=== PATIENT | female | born 1970 | race Caucasian/White ===

== ENCOUNTER 2020-06-04 11:12 | Inpatient (IN) | payer OTHER ==
[2020-06-04 11:39] VITALS: BMI 19.3
[2020-06-04] MEDS ORDERED: ACETAMINOPHEN 325 MG TABLET (FP) PO PRN ×2 (12:20)
[2020-06-04] MEDS ORDERED: MAGNESIUM CITRATE 300 ML BOTTLE PO PRN (12:20)
[2020-06-04] MEDS ORDERED: BISMUTH SUBSALICYLATE 524 MG/30 ML UD PO PRN (12:20)
[2020-06-04] MEDS ORDERED: MAGNESIUM HYDROX 2400MG/30ML ORAL SUSPENSION 30 ML CUP PO PRN (12:20)
[2020-06-04] MEDS ORDERED: MENTHOL/PHENOL 1 EACH UD MM PRN (12:20)
[2020-06-04] MEDS ORDERED: hydrOXYzine PAMOATE 25 MG CAPSULE (FP) PO PRN (12:20)
[2020-06-04] MEDS ORDERED: MAG HYDROX/AL HYDROX/SIMETH 30 ML UNIT-DOSE CUP PO PRN (12:20)
[2020-06-04] MEDS ORDERED: ONDANSETRON *ODT* 4 MG TABLET SL PRN (12:20)
[2020-06-04] MEDS ORDERED: METHADONE HCL 10 MG TABLET (FOR DETOX USE ONLY) PO ONE ×2 (12:22→14:35)
[2020-06-04] MEDS ORDERED: cloNIDine HCL 0.1 MG TABLET PO PRN (12:22)
[2020-06-04] MEDS ORDERED: diazePAM 5 MG TABLET PO ONE (12:23)
[2020-06-04] MEDS ORDERED: diazePAM 5 MG TABLET PO PRN (12:23)
[2020-06-04] MEDS: NICOTINE POLACRILEX 4 MG GUM BUC PRN ×3 (13:56→22:51)
[2020-06-04] MEDS ORDERED: TRIMETHOBENZAMIDE HCL 200MG/2ML INJ IM PRN (14:34)
[2020-06-04] MEDS: DICYCLOMINE HCL 10 MG CAPSULE PO PRN (14:51)
[2020-06-04] MEDS ORDERED: diazePAM 5 MG TABLET PO SCH (17:00)
[2020-06-04] MEDS: IBUPROFEN 400 MG TABLET (FP) PO PRN (18:10)
[2020-06-04] MEDS: METHOCARBAMOL 500 MG TABLET PO PRN (21:08)
[2020-06-04] MEDS ORDERED: chlordiazePOXIDE HCL 25 MG CAPSULE PO PRN (22:03)
[2020-06-04] MEDS: THIAMINE HCL 100 MG TABLET (FP) PO SCH (22:40)
[2020-06-04] MEDS: MELATONIN 5 MG TABLETS PO PRN (22:40)
[2020-06-04] MEDS: chlordiazePOXIDE HCL 25 MG CAPSULE PO SCH (22:41)
[2020-06-05] MEDS: chlordiazePOXIDE HCL 25 MG CAPSULE PO SCH ×4 (07:22→22:19)
[2020-06-05] MEDS ORDERED: METHADONE HCL 5 MG TABLET (FOR DETOX USE ONLY) ONE (09:45)
[2020-06-05] MEDS ORDERED: METHADONE HCL 10 MG TABLET (FOR DETOX USE ONLY) ONE (09:46)
[2020-06-05] MEDS ORDERED: METHADONE HCL 10 MG TABLET (FOR DETOX USE ONLY) PO ONE (10:00)
[2020-06-05] MEDS ORDERED: METHADONE (DETOX) 20 MG, METHADONE (DETOX) 5 MG PO ONE (10:00)
[2020-06-05 10:19] LABS: HEMATOCRIT 40.9 % (32.4-45.2); HEMOGLOBIN 13.1 GM/dL (10.7-15.3); MCH 29.5 pg (25.7-33.7); MEAN CELL VOLUME 92.2 fl (80-96); MEAN PLT VOLUME 9.6 fl (7.5-11.1); PLATELET COUNT 185 K/MM3 (134-434); RBC 4.44 M/mm3 (3.60-5.2); RDW 13.6 % (11.6-15.6); WHITE BLOOD COUNT 6.3 K/mm3 (4.0-10.0)
[2020-06-05 10:22] LABS: BLOOD UREA NITROGEN 14.7 mg/dL (7-18); CALCIUM 8.4 mg/dL (8.5-10.1)
[2020-06-05 10:25] LABS: CREATININE 0.7 mg/dL (0.55-1.3)
[2020-06-05 10:27] LABS: BILIRUBIN,TOTAL 0.5 mg/dL (0.2-1); TOT PROT 5.7 g/dl (6.4-8.2)
[2020-06-05] MEDS: PRENATAL VITAMINS W/ FOLIC ACID TABLET (FP) PO SCH (10:47)
[2020-06-05] MEDS: IBUPROFEN 400 MG TABLET (FP) PO PRN (10:49)
[2020-06-05] MEDS ORDERED: PNEUMOCOCCAL 23 VACCINE 0.5 ML VIAL IM ONE (12:00)
[2020-06-05] MEDS: NICOTINE 21 MG/24 HOURS TOPICAL PATCH TD SCH (13:40)
[2020-06-05] MEDS: METHOCARBAMOL 500 MG TABLET PO PRN (14:20)
[2020-06-05] MEDS: THIAMINE HCL 100 MG TABLET (FP) PO SCH (22:19)
[2020-06-05] MEDS: MELATONIN 5 MG TABLETS PO PRN (22:19)
[2020-06-06] MEDS ORDERED: diazePAM 5 MG TABLET PO SCH (06:00)
[2020-06-06] MEDS: chlordiazePOXIDE HCL 25 MG CAPSULE PO SCH ×3 (07:09→17:55)
[2020-06-06] MEDS ORDERED: METHADONE HCL 10 MG TABLET (FOR DETOX USE ONLY) PO ONE ×2 (10:00)
[2020-06-06] MEDS: NICOTINE 21 MG/24 HOURS TOPICAL PATCH TD SCH (10:24)
[2020-06-06] MEDS: PRENATAL VITAMINS W/ FOLIC ACID TABLET (FP) PO SCH (10:25)
[2020-06-06] MEDS: DICYCLOMINE HCL 10 MG CAPSULE PO PRN (10:26)
[2020-06-06] MEDS ORDERED: FLU VACCINE (FLULAVAL) PF 60 MCG/0.5 ML SYRINGE 2020-2021 IM ONE (12:00)
[2020-06-06] MEDS ORDERED: PNEUMOC 13-VAL CONJ-DIP CRM/PF 0.5 ML DISP.SYRIN IM ONE (12:00)
[2020-06-06 13:23] VITALS: BP 109/75; PULSE 82; TEMP 98.2
[2020-06-06] MEDS ORDERED: MASKS NR ONE (14:14)
[2020-06-06] MEDS: NICOTINE POLACRILEX 4 MG GUM BUC PRN (14:28)
[2020-06-06] MEDS ORDERED: PNEUMOCOCCAL 23 VACCINE 0.5 ML VIAL IM ONE (14:51)
[2020-06-07] MEDS ORDERED: chlordiazePOXIDE HCL 10 MG CAPSULE PO PRN
[2020-06-07] MEDS ORDERED: chlordiazePOXIDE HCL 10 MG CAPSULE PO SCH (05:00)
[2020-06-07] MEDS ORDERED: diazePAM 5 MG TABLET PO SCH (06:00)
[2020-06-07] MEDS ORDERED: METHADONE (DETOX) 10 MG, METHADONE (DETOX) 5 MG PO ONE (10:00)
[2020-06-07] MEDS ORDERED: METHADONE HCL 10 MG TABLET (FOR DETOX USE ONLY) PO ONE (10:00)
[2020-06-08] MEDS ORDERED: chlordiazePOXIDE HCL 10 MG CAPSULE PO SCH (05:00)
[2020-06-08] MEDS ORDERED: diazePAM 5 MG TABLET PO ONE (06:00)
[2020-06-08] MEDS ORDERED: METHADONE HCL 10 MG TABLET (FOR DETOX USE ONLY) PO ONE (10:00)
[2020-06-09] MEDS ORDERED: chlordiazePOXIDE HCL 10 MG CAPSULE PO ONE (05:00)
[2020-06-09] MEDS ORDERED: METHADONE HCL 5 MG TABLET (FOR DETOX USE ONLY) PO ONE (06:00)
== END 2020-06-06 19:10 | disposition left against medical advice (07) | DRG 894 ==
LOC: YASAS 11:12 → Y6N 11:55
PROVIDERS: ADMIT Allergy & Immunology; ATTEND Allergy & Immunology
PROC: HZ2ZZZZ Detoxification Services for Substance Abuse Treatment (ICD-10-PCS; principal; 2020-06-04)
DX: F11.23 Opioid dependence with withdrawal (principal); F14.20 Cocaine dependence, uncomplicated; F10.20 Alcohol dependence, uncomplicated; F17.210 Nicotine dependence, cigarettes, uncomplicated; F22 Delusional disorders
CPT/HCPCS: 36415; 71046-TC-FY; 80053; 85027; 86780; 93005; 93010; C9803; J0735; Q0162; U0003

== ENCOUNTER 2020-08-03 17:47 | Inpatient (IN) | payer OTHER ==
[2020-08-03 21:17] VITALS: BMI 20.7
[2020-08-03] MEDS ORDERED: ACETAMINOPHEN 325 MG TABLET (FP) PO PRN ×2 (21:18)
[2020-08-03] MEDS ORDERED: BISMUTH SUBSALICYLATE 524 MG/30 ML UD PO PRN (21:18)
[2020-08-03] MEDS ORDERED: MAGNESIUM CITRATE 300 ML BOTTLE PO PRN (21:18)
[2020-08-03] MEDS ORDERED: MAG HYDROX/AL HYDROX/SIMETH 30 ML UNIT-DOSE CUP PO PRN (21:18)
[2020-08-03] MEDS ORDERED: MAGNESIUM HYDROX 2400MG/30ML ORAL SUSPENSION 30 ML CUP PO PRN (21:18)
[2020-08-03] MEDS ORDERED: MENTHOL/PHENOL 1 EACH UD MM PRN (21:18)
[2020-08-03] MEDS ORDERED: METHADONE HCL 10 MG TABLET (FOR DETOX USE ONLY) PO ONE (22:15)
[2020-08-03] MEDS ORDERED: METHADONE HCL 10 MG TABLET (FOR DETOX USE ONLY) ONE (22:24)
[2020-08-03] MEDS ORDERED: chlordiazePOXIDE HCL 25 MG CAPSULE ONE (22:24)
[2020-08-03] MEDS: chlordiazePOXIDE HCL 25 MG CAPSULE PO SCH (22:27)
[2020-08-03] MEDS: MELATONIN 5 MG TABLETS PO SCH (23:49)
[2020-08-03] MEDS: THIAMINE HCL 100 MG TABLET (FP) PO SCH (23:50)
[2020-08-04] MEDS: NICOTINE POLACRILEX 2 MG GUM BUC PRN ×3 (02:18→19:39)
[2020-08-04] MEDS: METHOCARBAMOL 500 MG TABLET PO PRN (02:23)
[2020-08-04] MEDS: chlordiazePOXIDE HCL 25 MG CAPSULE PO SCH ×4 (06:00→23:49)
[2020-08-04] MEDS: ONDANSETRON *ODT* 4 MG TABLET SL PRN ×3 (08:44→20:24)
[2020-08-04] MEDS ORDERED: METHADONE HCL 5 MG TABLET (FOR DETOX USE ONLY) ONE (09:11)
[2020-08-04] MEDS ORDERED: METHADONE HCL 10 MG TABLET (FOR DETOX USE ONLY) ONE (09:12)
[2020-08-04] MEDS ORDERED: METHADONE (DETOX) 20 MG, METHADONE (DETOX) 5 MG PO ONE (10:00)
[2020-08-04] MEDS: PRENATAL VITAMINS W/ FOLIC ACID TABLET (FP) PO SCH (10:21)
[2020-08-04] MEDS: NICOTINE 14 MG/24 HOURS TOPICAL PATCH TD SCH (10:21)
[2020-08-04 11:36] LABS: HEMATOCRIT 40.5 % (32.4-45.2); HEMOGLOBIN 13.7 GM/dL (10.7-15.3); MCHC 33.8 g/dl (32.0-36.0); MEAN CELL VOLUME 91.6 fl (80-96); MEAN PLT VOLUME 9.9 fl (7.5-11.1); PLATELET COUNT 225 K/MM3 (134-434); RBC 4.42 M/mm3 (3.60-5.2); RDW 13.6 % (11.6-15.6); WHITE BLOOD COUNT 7.7 K/mm3 (4.0-10.0)
[2020-08-04 11:39] LABS: POTASSIUM 3.7 mmol/L (3.5-5.1)
[2020-08-04 11:48] LABS: ALBUMIN 3.5 g/dl (3.4-5.0); CALCIUM 8.7 mg/dL (8.5-10.1)
[2020-08-04 11:49] LABS: BLOOD UREA NITROGEN 23.4 mg/dL (7-18)
[2020-08-04 11:52] LABS: CREATININE 0.9 mg/dL (0.55-1.3)
[2020-08-04 11:53] LABS: TOT PROT 6.6 g/dl (6.4-8.2)
[2020-08-04] MEDS: chlordiazePOXIDE HCL 25 MG CAPSULE PO PRN ×2 (14:49→18:47)
[2020-08-04] MEDS: IBUPROFEN 400 MG TABLET (FP) PO PRN (19:35)
[2020-08-04] MEDS ORDERED: hydrOXYzine PAMOATE 25 MG CAPSULE (FP) PO PRN (20:10)
[2020-08-04] MEDS: MELATONIN 5 MG TABLETS PO SCH (23:49)
[2020-08-04] MEDS: THIAMINE HCL 100 MG TABLET (FP) PO SCH (23:50)
[2020-08-05] MEDS: chlordiazePOXIDE HCL 25 MG CAPSULE PO SCH ×4 (06:55→22:01)
[2020-08-05] MEDS ORDERED: METHADONE HCL 10 MG TABLET (FOR DETOX USE ONLY) PO ONE (10:00)
[2020-08-05] MEDS: NICOTINE 14 MG/24 HOURS TOPICAL PATCH TD SCH (10:13)
[2020-08-05] MEDS: PRENATAL VITAMINS W/ FOLIC ACID TABLET (FP) PO SCH (10:13)
[2020-08-05] MEDS: NICOTINE POLACRILEX 2 MG GUM BUC PRN ×2 (10:15→15:36)
[2020-08-05] MEDS: IBUPROFEN 400 MG TABLET (FP) PO PRN ×2 (11:44→20:07)
[2020-08-05] MEDS: chlordiazePOXIDE HCL 25 MG CAPSULE PO PRN (15:31)
[2020-08-05] MEDS: METHOCARBAMOL 500 MG TABLET PO PRN (16:47)
[2020-08-05] MEDS: ONDANSETRON *ODT* 4 MG TABLET SL PRN (16:47)
[2020-08-05] MEDS: hydrOXYzine PAMOATE 50 MG CAPSULE (FP) PO PRN ×2 (16:47→21:06)
[2020-08-05] MEDS: MELATONIN 5 MG TABLETS PO SCH (21:05)
[2020-08-05] MEDS: THIAMINE HCL 100 MG TABLET (FP) PO SCH (21:05)
[2020-08-06] MEDS ORDERED: chlordiazePOXIDE HCL 10 MG CAPSULE PO PRN
[2020-08-06] MEDS: chlordiazePOXIDE HCL 10 MG CAPSULE PO SCH ×2 (07:21→10:53)
[2020-08-06] MEDS: METHOCARBAMOL 500 MG TABLET PO PRN (08:18)
[2020-08-06] MEDS: IBUPROFEN 400 MG TABLET (FP) PO PRN (08:18)
[2020-08-06] MEDS ORDERED: METHADONE HCL 5 MG TABLET (FOR DETOX USE ONLY) ONE (08:59)
[2020-08-06] MEDS ORDERED: METHADONE HCL 10 MG TABLET (FOR DETOX USE ONLY) ONE (09:00)
[2020-08-06] MEDS ORDERED: METHADONE (DETOX) 10 MG, METHADONE (DETOX) 5 MG PO ONE (10:00)
[2020-08-06] MEDS: NICOTINE 14 MG/24 HOURS TOPICAL PATCH TD SCH (10:54)
[2020-08-06] MEDS: PRENATAL VITAMINS W/ FOLIC ACID TABLET (FP) PO SCH (10:54)
[2020-08-06] MEDS: ONDANSETRON *ODT* 4 MG TABLET SL PRN (12:11)
[2020-08-06 12:54] VITALS: BP 108/79; PULSE 95; TEMP 97.8
[2020-08-07] MEDS ORDERED: chlordiazePOXIDE HCL 10 MG CAPSULE PO SCH (05:00)
[2020-08-07] MEDS ORDERED: METHADONE HCL 10 MG TABLET (FOR DETOX USE ONLY) PO ONE (10:00)
[2020-08-08] MEDS ORDERED: chlordiazePOXIDE HCL 10 MG CAPSULE PO ONE (05:00)
[2020-08-08] MEDS ORDERED: METHADONE HCL 5 MG TABLET (FOR DETOX USE ONLY) PO ONE (06:00)
== END 2020-08-06 16:49 | disposition left against medical advice (07) | DRG 897 ==
LOC: YASAS 17:47 → Y6N 21:35
PROVIDERS: ADMIT Allergy & Immunology; ATTEND Allergy & Immunology
PROC: HZ2ZZZZ Detoxification Services for Substance Abuse Treatment (ICD-10-PCS; principal; 2020-08-03)
DX: F11.23 Opioid dependence with withdrawal (principal); F10.230 Alcohol dependence with withdrawal, uncomplicated; F14.20 Cocaine dependence, uncomplicated; F19.259 Other psychoactive substance dependence with psychoactive substance-induced psychotic disorder, unspecified; F17.210 Nicotine dependence, cigarettes, uncomplicated; F60.9 Personality disorder, unspecified; Z86.11 Personal history of tuberculosis; Z56.0 Unemployment, unspecified; Z88.6 Allergy status to analgesic agent
CPT/HCPCS: 36415; 80053; 85027; 86780; 93005; 93010; C9803; Q0162; U0003

== ENCOUNTER 2020-09-04 00:51 | Inpatient (IN) | payer OTHER ==
[2020-09-04 02:00] VITALS: BMI 21.1
[2020-09-04] MEDS ORDERED: chlordiazePOXIDE HCL 25 MG CAPSULE PO PRN (02:13)
[2020-09-04] MEDS ORDERED: cloNIDine HCL 0.1 MG TABLET PO PRN (02:13)
[2020-09-04] MEDS ORDERED: P-EPHED 60MG/TRIPROLIDI 2.5MG TABLET PO PRN (02:13)
[2020-09-04] MEDS ORDERED: METHADONE HCL 10 MG TABLET (FOR DETOX USE ONLY) PO ONE (02:13)
[2020-09-04] MEDS ORDERED: MAGNESIUM CITRATE 300 ML BOTTLE PO PRN (02:13)
[2020-09-04] MEDS ORDERED: MENTHOL/PHENOL 1 EACH UD MM PRN (02:13)
[2020-09-04] MEDS ORDERED: guaiFENesin 200 MG/10 ML 10 ML UNIT-DOSE CUPS PO PRN (02:13)
[2020-09-04] MEDS ORDERED: chlordiazePOXIDE HCL 25 MG CAPSULE ONE (05:53)
[2020-09-04] MEDS: chlordiazePOXIDE HCL 25 MG CAPSULE PO SCH ×4 (05:57→22:08)
[2020-09-04] MEDS: NICOTINE 21 MG/24 HOURS TOPICAL PATCH TD SCH (10:57)
[2020-09-04] MEDS: PRENATAL VITAMINS W/ FOLIC ACID TABLET (FP) PO SCH (10:57)
[2020-09-04 11:51] LABS: HEMATOCRIT 38.1 % (32.4-45.2); HEMOGLOBIN 12.9 GM/dL (10.7-15.3); MCHC 33.8 g/dl (32.0-36.0); MEAN CELL VOLUME 91.7 fl (80-96); MEAN PLT VOLUME 10.3 fl (7.5-11.1); PLATELET COUNT 190 K/MM3 (134-434); RBC 4.16 M/mm3 (3.60-5.2); RDW 13.6 % (11.6-15.6); WHITE BLOOD COUNT 6.3 K/mm3 (4.0-10.0)
[2020-09-04 12:00] LABS: POTASSIUM 4.3 mmol/L (3.5-5.1)
[2020-09-04 12:41] LABS: CALCIUM 8.7 mg/dL (8.5-10.1)
[2020-09-04 12:42] LABS: ALBUMIN 3.2 g/dl (3.4-5.0)
[2020-09-04 12:45] LABS: CREATININE 0.9 mg/dL (0.55-1.3)
[2020-09-04 12:47] LABS: BILIRUBIN,TOTAL 0.5 mg/dL (0.2-1); TOT PROT 5.9 g/dl (6.4-8.2)
[2020-09-04] MEDS ORDERED: TRIMETHOBENZAMIDE HCL 200MG/2ML INJ IM PRN (18:28)
[2020-09-04 18:40] LABS: URINE APPEARANCE TURBID; URINE BILIRUBIN NEGATIVE (NEGATIVE); URINE COLOR YELLOW; URINE GLUCOSE (UA) NEGATIVE (NEGATIVE); URINE KETONE NEGATIVE (NEGATIVE); URINE LEUK ESTERASE NEGATIVE (NEGATIVE); URINE NITRITE NEGATIVE (NEGATIVE); URINE PROTEIN NEGATIVE (NEGATIVE)
[2020-09-04] MEDS: METHOCARBAMOL 500 MG TABLET PO PRN (20:10)
[2020-09-04] MEDS: NICOTINE POLACRILEX 2 MG GUM BUC PRN (21:35)
[2020-09-04] MEDS: THIAMINE HCL 100 MG TABLET (FP) PO SCH (22:07)
[2020-09-04] MEDS: MELATONIN 5 MG TABLETS PO SCH (22:07)
[2020-09-05] MEDS: chlordiazePOXIDE HCL 25 MG CAPSULE PO SCH ×4 (06:20→22:32)
[2020-09-05] MEDS ORDERED: METHADONE HCL 10 MG TABLET (FOR DETOX USE ONLY) ONE (08:55)
[2020-09-05] MEDS ORDERED: METHADONE HCL 5 MG TABLET (FOR DETOX USE ONLY) ONE (08:56)
[2020-09-05] MEDS ORDERED: METHADONE (DETOX) 20 MG, METHADONE (DETOX) 5 MG PO ONE (10:00)
[2020-09-05] MEDS: PRENATAL VITAMINS W/ FOLIC ACID TABLET (FP) PO SCH (10:28)
[2020-09-05] MEDS: NICOTINE 21 MG/24 HOURS TOPICAL PATCH TD SCH (10:28)
[2020-09-05] MEDS: METHOCARBAMOL 500 MG TABLET PO PRN ×2 (10:30→22:32)
[2020-09-05] MEDS: NICOTINE POLACRILEX 2 MG GUM BUC PRN (13:29)
[2020-09-05] MEDS ORDERED: hydrOXYzine PAMOATE 50 MG CAPSULE (FP) PO ONE (15:11)
[2020-09-05] MEDS: BISMUTH SUBSALICYLATE 524 MG/30 ML UD PO PRN (17:36)
[2020-09-05] MEDS: THIAMINE HCL 100 MG TABLET (FP) PO SCH (22:32)
[2020-09-05] MEDS: MELATONIN 5 MG TABLETS PO SCH (22:32)
[2020-09-06] MEDS ORDERED: chlordiazePOXIDE HCL 10 MG CAPSULE PO PRN
[2020-09-06] MEDS: chlordiazePOXIDE HCL 10 MG CAPSULE PO SCH ×4 (07:00→22:26)
[2020-09-06] MEDS ORDERED: METHADONE HCL 10 MG TABLET (FOR DETOX USE ONLY) PO ONE (10:00)
[2020-09-06] MEDS: PRENATAL VITAMINS W/ FOLIC ACID TABLET (FP) PO SCH (10:03)
[2020-09-06] MEDS: NICOTINE 21 MG/24 HOURS TOPICAL PATCH TD SCH (10:04)
[2020-09-06] MEDS: BISMUTH SUBSALICYLATE 524 MG/30 ML UD PO PRN ×2 (11:28→17:16)
[2020-09-06] MEDS: METHOCARBAMOL 500 MG TABLET PO PRN ×2 (11:28→17:09)
[2020-09-06] MEDS: NICOTINE POLACRILEX 2 MG GUM BUC PRN (18:02)
[2020-09-06] MEDS: DICYCLOMINE HCL 10 MG CAPSULE PO PRN (19:29)
[2020-09-06] MEDS ORDERED: MELATONIN 5 MG TABLETS PO ONE (22:22)
[2020-09-06] MEDS: THIAMINE HCL 100 MG TABLET (FP) PO SCH (22:26)
[2020-09-06] MEDS: MELATONIN 5 MG TABLETS PO SCH (22:26)
[2020-09-07] MEDS: chlordiazePOXIDE HCL 10 MG CAPSULE PO SCH ×2 (06:45→17:41)
[2020-09-07] MEDS ORDERED: METHADONE HCL 10 MG TABLET (FOR DETOX USE ONLY) ONE (09:20)
[2020-09-07] MEDS ORDERED: METHADONE HCL 5 MG TABLET (FOR DETOX USE ONLY) ONE (09:21)
[2020-09-07] MEDS: NICOTINE 21 MG/24 HOURS TOPICAL PATCH TD SCH (09:53)
[2020-09-07] MEDS: PRENATAL VITAMINS W/ FOLIC ACID TABLET (FP) PO SCH (09:53)
[2020-09-07] MEDS ORDERED: METHADONE (DETOX) 10 MG, METHADONE (DETOX) 5 MG PO ONE (10:00)
[2020-09-07] MEDS: MAG HYDROX/AL HYDROX/SIMETH 30 ML UNIT-DOSE CUP PO PRN ×2 (12:49→22:23)
[2020-09-07] MEDS: NICOTINE POLACRILEX 4 MG GUM BUC PRN ×2 (13:44→20:06)
[2020-09-07] MEDS: DICYCLOMINE HCL 10 MG CAPSULE PO PRN (14:01)
[2020-09-07] MEDS: MAGNESIUM HYDROX 2400MG/30ML ORAL SUSPENSION 30 ML CUP PO PRN (14:02)
[2020-09-07] MEDS ORDERED: hydrOXYzine PAMOATE 25 MG CAPSULE (FP) PO PRN (18:51)
[2020-09-07] MEDS: THIAMINE HCL 100 MG TABLET (FP) PO SCH (22:22)
[2020-09-07] MEDS: MELATONIN 5 MG TABLETS PO SCH (22:22)
[2020-09-08] MEDS: MAGNESIUM HYDROX 2400MG/30ML ORAL SUSPENSION 30 ML CUP PO PRN (01:25)
[2020-09-08] MEDS ORDERED: chlordiazePOXIDE HCL 10 MG CAPSULE PO ONE (05:00)
[2020-09-08] MEDS: BISMUTH SUBSALICYLATE 524 MG/30 ML UD PO PRN ×3 (08:45→22:33)
[2020-09-08] MEDS ORDERED: METHADONE HCL 10 MG TABLET (FOR DETOX USE ONLY) PO ONE (10:00)
[2020-09-08] MEDS: PRENATAL VITAMINS W/ FOLIC ACID TABLET (FP) PO SCH (10:37)
[2020-09-08] MEDS: NICOTINE 21 MG/24 HOURS TOPICAL PATCH TD SCH (10:37)
[2020-09-08] MEDS: METHOCARBAMOL 500 MG TABLET PO PRN (10:39)
[2020-09-08] MEDS: IBUPROFEN 400 MG TABLET (FP) PO PRN ×2 (10:39→22:14)
[2020-09-08] MEDS ORDERED: PANTOPRAZOLE 40 MG TABLET PO ONE (14:01)
[2020-09-08] MEDS: DICYCLOMINE HCL 10 MG CAPSULE PO PRN (14:31)
[2020-09-08] MEDS ORDERED: ONDANSETRON *ODT* 4 MG TABLET SL PRN (15:47)
[2020-09-08] MEDS: MELATONIN 5 MG TABLETS PO SCH (22:12)
[2020-09-08] MEDS: THIAMINE HCL 100 MG TABLET (FP) PO SCH (22:12)
[2020-09-09] MEDS ORDERED: METHADONE HCL 5 MG TABLET (FOR DETOX USE ONLY) PO ONE (06:00)
[2020-09-09] MEDS: MAGNESIUM HYDROX 2400MG/30ML ORAL SUSPENSION 30 ML CUP PO PRN (06:52)
[2020-09-09 07:14] VITALS: BP 92/55; PULSE 78; TEMP 99
[2020-09-09] MEDS: BISMUTH SUBSALICYLATE 524 MG/30 ML UD PO PRN (08:33)
[2020-09-09] MEDS: PRENATAL VITAMINS W/ FOLIC ACID TABLET (FP) PO SCH (09:21)
[2020-09-09] MEDS: NICOTINE 21 MG/24 HOURS TOPICAL PATCH TD SCH (09:21)
[2020-09-09] MEDS ORDERED: PANTOPRAZOLE 40 MG TABLET PO SCH (10:00)
== END 2020-09-09 09:31 | disposition home or self-care (01) | DRG 897 ==
LOC: YASAS 00:51 → Y6N 09:13 → Y3N 11:20
PROVIDERS: ADMIT Allergy & Immunology; ATTEND Allergy & Immunology
PROC: HZ2ZZZZ Detoxification Services for Substance Abuse Treatment (ICD-10-PCS; principal; 2020-09-04)
DX: F11.23 Opioid dependence with withdrawal (principal); F14.20 Cocaine dependence, uncomplicated; F10.230 Alcohol dependence with withdrawal, uncomplicated; F17.210 Nicotine dependence, cigarettes, uncomplicated; F22 Delusional disorders; F60.3 Borderline personality disorder; F19.959 Other psychoactive substance use, unspecified with psychoactive substance-induced psychotic disorder, unspecified; Z86.11 Personal history of tuberculosis; Z56.0 Unemployment, unspecified; Z88.6 Allergy status to analgesic agent
CPT/HCPCS: 36415; 80053; 81003; 81025; 85027; 86780; C9803; J0735; U0003

== ENCOUNTER 2020-09-30 18:38 | Inpatient (IN) | payer OTHER ==
[2020-09-30 20:42] VITALS: BMI 20.1
[2020-09-30] MEDS ORDERED: MAG HYDROX/AL HYDROX/SIMETH 30 ML UNIT-DOSE CUP PO PRN (21:27)
[2020-09-30] MEDS ORDERED: cloNIDine HCL 0.1 MG TABLET PO PRN (21:27)
[2020-09-30] MEDS ORDERED: MAGNESIUM HYDROX 2400MG/30ML ORAL SUSPENSION 30 ML CUP PO PRN (21:27)
[2020-09-30] MEDS ORDERED: MAGNESIUM CITRATE 300 ML BOTTLE PO PRN (21:27)
[2020-09-30] MEDS ORDERED: MENTHOL/PHENOL 1 EACH UD MM PRN (21:27)
[2020-09-30] MEDS ORDERED: ONDANSETRON *ODT* 4 MG TABLET SL PRN (21:27)
[2020-09-30] MEDS ORDERED: METHADONE HCL 10 MG TABLET (FOR DETOX USE ONLY) PO ONE (21:27)
[2020-09-30] MEDS: MELATONIN 5 MG TABLETS PO SCH (23:16)
[2020-09-30] MEDS: THIAMINE HCL 100 MG TABLET (FP) PO SCH (23:16)
[2020-10-01] MEDS: NICOTINE POLACRILEX 2 MG GUM BUC PRN (04:14)
[2020-10-01] MEDS: IBUPROFEN 400 MG TABLET (FP) PO PRN ×3 (05:25→21:24)
[2020-10-01] MEDS ORDERED: METHADONE HCL 5 MG TABLET (FOR DETOX USE ONLY) ONE (09:02)
[2020-10-01] MEDS ORDERED: METHADONE HCL 10 MG TABLET (FOR DETOX USE ONLY) ONE (09:02)
[2020-10-01] MEDS ORDERED: METHADONE (DETOX) 20 MG, METHADONE (DETOX) 5 MG PO ONE (10:00)
[2020-10-01] MEDS: NICOTINE 21 MG/24 HOURS TOPICAL PATCH TD SCH (10:22)
[2020-10-01] MEDS: PRENATAL VITAMINS W/ FOLIC ACID TABLET (FP) PO SCH (10:22)
[2020-10-01] MEDS: METHOCARBAMOL 500 MG TABLET PO PRN (10:24)
[2020-10-01] MEDS: diazePAM 5 MG TABLET PO PRN (10:24)
[2020-10-01 11:02] LABS: POTASSIUM 3.7 mmol/L (3.5-5.1)
[2020-10-01 11:06] LABS: ALBUMIN 4.1 g/dl (3.4-5.0)
[2020-10-01 11:07] LABS: BLOOD UREA NITROGEN 17.6 mg/dL (7-18); CALCIUM 9.2 mg/dL (8.5-10.1)
[2020-10-01 11:10] LABS: CREATININE 0.9 mg/dL (0.55-1.3)
[2020-10-01 11:11] LABS: BILIRUBIN,TOTAL 0.7 mg/dL (0.2-1); HEMATOCRIT 41.4 % (32.4-45.2); HEMOGLOBIN 14.2 GM/dL (10.7-15.3); MCH 31.2 pg (25.7-33.7); MCHC 34.3 g/dl (32.0-36.0); MEAN CELL VOLUME 90.9 fl (80-96); MEAN PLT VOLUME 10.5 fl (7.5-11.1); PLATELET COUNT 227 K/MM3 (134-434); RBC 4.55 M/mm3 (3.60-5.2); RDW 13.1 % (11.6-15.6); TOT PROT 6.9 g/dl (6.4-8.2); WHITE BLOOD COUNT 7.9 K/mm3 (4.0-10.0)
[2020-10-01] MEDS: MELATONIN 5 MG TABLETS PO SCH (21:23)
[2020-10-01] MEDS: THIAMINE HCL 100 MG TABLET (FP) PO SCH (21:23)
[2020-10-02] MEDS ORDERED: METHADONE HCL 10 MG TABLET (FOR DETOX USE ONLY) PO ONE (10:00)
[2020-10-02] MEDS: IBUPROFEN 400 MG TABLET (FP) PO PRN ×2 (10:38→19:31)
[2020-10-02] MEDS: PRENATAL VITAMINS W/ FOLIC ACID TABLET (FP) PO SCH (10:39)
[2020-10-02] MEDS: NICOTINE 21 MG/24 HOURS TOPICAL PATCH TD SCH ×2 (10:40→10:42)
[2020-10-02] MEDS: diazePAM 5 MG TABLET PO PRN ×2 (12:17→19:30)
[2020-10-02] MEDS: METHOCARBAMOL 500 MG TABLET PO PRN (19:30)
[2020-10-02] MEDS: BISMUTH SUBSALICYLATE 524 MG/30 ML UD PO PRN (20:22)
[2020-10-02] MEDS: MELATONIN 5 MG TABLETS PO SCH (22:20)
[2020-10-02] MEDS: THIAMINE HCL 100 MG TABLET (FP) PO SCH (22:20)
[2020-10-03] MEDS ORDERED: METHADONE HCL 10 MG TABLET (FOR DETOX USE ONLY) ONE (08:56)
[2020-10-03] MEDS ORDERED: METHADONE HCL 5 MG TABLET (FOR DETOX USE ONLY) ONE (08:56)
[2020-10-03] MEDS: NICOTINE 21 MG/24 HOURS TOPICAL PATCH TD SCH (09:28)
[2020-10-03] MEDS: PRENATAL VITAMINS W/ FOLIC ACID TABLET (FP) PO SCH (09:28)
[2020-10-03] MEDS: METHOCARBAMOL 500 MG TABLET PO PRN ×2 (09:31→22:23)
[2020-10-03] MEDS ORDERED: METHADONE (DETOX) 10 MG, METHADONE (DETOX) 5 MG PO ONE (10:00)
[2020-10-03] MEDS: BISMUTH SUBSALICYLATE 524 MG/30 ML UD PO PRN ×2 (12:06→19:37)
[2020-10-03] MEDS: IBUPROFEN 400 MG TABLET (FP) PO PRN (14:58)
[2020-10-03] MEDS: diazePAM 5 MG TABLET PO PRN ×3 (14:59→22:25)
[2020-10-03] MEDS: NICOTINE POLACRILEX 2 MG GUM BUC PRN ×2 (17:51→22:43)
[2020-10-03] MEDS: THIAMINE HCL 100 MG TABLET (FP) PO SCH (22:21)
[2020-10-03] MEDS: MELATONIN 5 MG TABLETS PO SCH (22:21)
[2020-10-04] MEDS ORDERED: METHADONE HCL 10 MG TABLET (FOR DETOX USE ONLY) PO ONE (10:00)
[2020-10-04] MEDS: NICOTINE 21 MG/24 HOURS TOPICAL PATCH TD SCH (10:16)
[2020-10-04] MEDS: PRENATAL VITAMINS W/ FOLIC ACID TABLET (FP) PO SCH (10:16)
[2020-10-04] MEDS: METHOCARBAMOL 500 MG TABLET PO PRN (10:17)
[2020-10-04] MEDS: IBUPROFEN 400 MG TABLET (FP) PO PRN (10:20)
[2020-10-04 13:55] VITALS: BP 110/77; PULSE 96; TEMP 97.1
[2020-10-04] MEDS ORDERED: hydrOXYzine PAMOATE 50 MG CAPSULE (FP) PO PRN (14:54)
[2020-10-05] MEDS ORDERED: METHADONE HCL 5 MG TABLET (FOR DETOX USE ONLY) PO ONE (06:00)
== END 2020-10-04 15:55 | disposition left against medical advice (07) | DRG 894 ==
LOC: YASAS 18:38 → Y3N 20:45
PROVIDERS: ADMIT Allergy & Immunology; ATTEND Allergy & Immunology
PROC: HZ2ZZZZ Detoxification Services for Substance Abuse Treatment (ICD-10-PCS; principal; 2020-09-30)
DX: F11.23 Opioid dependence with withdrawal (principal); F17.210 Nicotine dependence, cigarettes, uncomplicated; Z86.11 Personal history of tuberculosis; Z88.6 Allergy status to analgesic agent
CPT/HCPCS: 36415; 80053; 81025; 85027; 86780; C9803; U0003; U0005

== ENCOUNTER 2020-11-03 17:35 | Inpatient (IN) | payer OTHER ==
[2020-11-03 18:33] VITALS: BMI 18.3
[2020-11-03] MEDS ORDERED: ONDANSETRON *ODT* 4 MG TABLET SL PRN (19:16)
[2020-11-03] MEDS ORDERED: MAG HYDROX/AL HYDROX/SIMETH 30 ML UNIT-DOSE CUP PO PRN (19:16)
[2020-11-03] MEDS ORDERED: MAGNESIUM HYDROX 2400MG/30ML ORAL SUSPENSION 30 ML CUP PO PRN (19:16)
[2020-11-03] MEDS ORDERED: MENTHOL/PHENOL 1 EACH UD MM PRN (19:16)
[2020-11-03] MEDS ORDERED: MAGNESIUM CITRATE 300 ML BOTTLE PO PRN (19:16)
[2020-11-03] MEDS ORDERED: diazePAM 5 MG TABLET PO PRN (19:18)
[2020-11-03] MEDS ORDERED: diazePAM 5 MG TABLET PO ONE (19:18)
[2020-11-03] MEDS ORDERED: cloNIDine HCL 0.1 MG TABLET PO PRN (19:19)
[2020-11-03] MEDS: NICOTINE POLACRILEX 2 MG GUM BUC PRN (20:34)
[2020-11-03] MEDS: diazePAM 5 MG TABLET PO SCH (22:23)
[2020-11-03] MEDS: MELATONIN 5 MG TABLETS PO SCH (22:23)
[2020-11-03] MEDS: THIAMINE HCL 100 MG TABLET (FP) PO SCH (22:23)
[2020-11-04] MEDS: hydrOXYzine PAMOATE 25 MG CAPSULE (FP) PO PRN ×3 (01:50→17:39)
[2020-11-04] MEDS: METHOCARBAMOL 500 MG TABLET PO PRN ×2 (01:50→17:39)
[2020-11-04] MEDS: diazePAM 5 MG TABLET PO SCH ×4 (05:18→22:31)
[2020-11-04] MEDS ORDERED: METHADONE HCL 10 MG TABLET (FOR DETOX USE ONLY) PO ONE (09:42)
[2020-11-04] MEDS ORDERED: cloNIDine HCL 0.1 MG TABLET PO PRN (09:42)
[2020-11-04 10:07] LABS: HEMATOCRIT 40.2 % (32.4-45.2); HEMOGLOBIN 13.5 GM/dL (10.7-15.3); MCH 30.6 pg (25.7-33.7); MCHC 33.6 g/dl (32.0-36.0); MEAN CELL VOLUME 91.2 fl (80-96); MEAN PLT VOLUME 9.6 fl (7.5-11.1); PLATELET COUNT 244 K/MM3 (134-434); RBC 4.41 M/mm3 (3.60-5.2); RDW 13.7 % (11.6-15.6); WHITE BLOOD COUNT 7.4 K/mm3 (4.0-10.0)
[2020-11-04] MEDS: NICOTINE 14 MG/24 HOURS TOPICAL PATCH TD SCH (10:14)
[2020-11-04] MEDS: PRENATAL VITAMINS W/ FOLIC ACID TABLET (FP) PO SCH (10:15)
[2020-11-04 10:19] LABS: BILIRUBIN,TOTAL 0.3 mg/dL (0.2-1); TOT PROT 6.2 g/dl (6.4-8.2)
[2020-11-04 10:20] LABS: ALBUMIN 3.2 g/dl (3.4-5.0); CALCIUM 8.8 mg/dL (8.5-10.1)
[2020-11-04 10:22] LABS: BLOOD UREA NITROGEN 12.2 mg/dL (7-18)
[2020-11-04 10:23] LABS: CREATININE 0.6 mg/dL (0.55-1.3)
[2020-11-04] MEDS: IBUPROFEN 400 MG TABLET (FP) PO PRN (15:51)
[2020-11-04] MEDS: BISMUTH SUBSALICYLATE 524 MG/30 ML UD PO PRN (16:56)
[2020-11-04] MEDS ORDERED: IBUPROFEN 400 MG TABLET (FP) PO ONE (20:46)
[2020-11-04] MEDS: MELATONIN 5 MG TABLETS PO SCH (22:30)
[2020-11-04] MEDS: THIAMINE HCL 100 MG TABLET (FP) PO SCH (22:31)
[2020-11-05] MEDS: hydrOXYzine PAMOATE 25 MG CAPSULE (FP) PO PRN (04:07)
[2020-11-05] MEDS: METHOCARBAMOL 500 MG TABLET PO PRN (04:07)
[2020-11-05] MEDS ORDERED: diazePAM 5 MG TABLET PO ONE (06:00)
[2020-11-05] MEDS ORDERED: METHADONE HCL 5 MG TABLET (FOR DETOX USE ONLY) ONE (09:15)
[2020-11-05] MEDS ORDERED: METHADONE HCL 10 MG TABLET (FOR DETOX USE ONLY) ONE (09:15)
[2020-11-05] MEDS: PRENATAL VITAMINS W/ FOLIC ACID TABLET (FP) PO SCH (09:16)
[2020-11-05] MEDS: NICOTINE 14 MG/24 HOURS TOPICAL PATCH TD SCH (09:17)
[2020-11-05] MEDS ORDERED: METHADONE (DETOX) 20 MG, METHADONE (DETOX) 5 MG PO ONE (10:00)
[2020-11-05] MEDS ORDERED: METHADONE HCL 10 MG TABLET (FOR DETOX USE ONLY) PO ONE (10:00)
[2020-11-05] MEDS ORDERED: diazePAM 5 MG TABLET PO PRN (11:54)
[2020-11-05] MEDS: IBUPROFEN 400 MG TABLET (FP) PO PRN ×2 (13:20→20:22)
[2020-11-05] MEDS ORDERED: MASKS NR ONE (15:49)
[2020-11-05] MEDS: diazePAM 5 MG TABLET PO SCH ×2 (17:39→23:14)
[2020-11-05] MEDS: BISMUTH SUBSALICYLATE 524 MG/30 ML UD PO PRN (17:39)
[2020-11-05 18:43] VITALS: BP 120/56; PULSE 87; TEMP 98.9
[2020-11-05] MEDS: NICOTINE POLACRILEX 2 MG GUM BUC PRN (20:34)
[2020-11-05] MEDS ORDERED: CYCLOBENZAPRINE HCL 10 MG TABLET (FP) PO PRN (21:14)
[2020-11-05] MEDS ORDERED: diphenhydrAMINE HCL 25 MG CAPSULE (FP) PO ONE (21:15)
[2020-11-05] MEDS: MELATONIN 5 MG TABLETS PO SCH (23:13)
[2020-11-05] MEDS: THIAMINE HCL 100 MG TABLET (FP) PO SCH (23:14)
[2020-11-06 06:06] LABS: SARS-CoV-2 NAA Not Detected (Not Detected)
[2020-11-06] MEDS ORDERED: METHADONE HCL 10 MG TABLET (FOR DETOX USE ONLY) PO ONE (10:00)
[2020-11-07] MEDS ORDERED: diazePAM 5 MG TABLET PO SCH (06:00)
[2020-11-07] MEDS ORDERED: METHADONE (DETOX) 10 MG, METHADONE (DETOX) 5 MG PO ONE (10:00)
[2020-11-08] MEDS ORDERED: diazePAM 5 MG TABLET PO SCH (06:00)
[2020-11-08] MEDS ORDERED: METHADONE HCL 10 MG TABLET (FOR DETOX USE ONLY) PO ONE (10:00)
[2020-11-09] MEDS ORDERED: diazePAM 5 MG TABLET PO ONE (06:00)
[2020-11-09] MEDS ORDERED: METHADONE HCL 5 MG TABLET (FOR DETOX USE ONLY) PO ONE (06:00)
== END 2020-11-05 23:00 | disposition left against medical advice (07) | DRG 894 ==
LOC: YASAS 17:35 → Y3N 18:59 → UNDOADMIN 18:59 → Y3N 11-04 10:24 → Y6N 11-05 14:18
PROVIDERS: ADMIT Allergy & Immunology; ATTEND Allergy & Immunology
PROC: HZ2ZZZZ Detoxification Services for Substance Abuse Treatment (ICD-10-PCS; principal; 2020-11-04)
DX: F11.23 Opioid dependence with withdrawal (principal); F14.20 Cocaine dependence, uncomplicated; F19.259 Other psychoactive substance dependence with psychoactive substance-induced psychotic disorder, unspecified; F10.230 Alcohol dependence with withdrawal, uncomplicated; F17.210 Nicotine dependence, cigarettes, uncomplicated; F60.9 Personality disorder, unspecified; Z86.11 Personal history of tuberculosis; Z88.6 Allergy status to analgesic agent
CPT/HCPCS: 36415; 80053; 81025; 85027; C9803; Q0162; U0003; U0005

== ENCOUNTER 2020-11-19 20:51 | Inpatient (IN) | payer OTHER ==
[2020-11-19 21:58] VITALS: BMI 20.1
[2020-11-20] MEDS ORDERED: MAGNESIUM HYDROX 2400MG/30ML ORAL SUSPENSION 30 ML CUP PO PRN (00:20)
[2020-11-20] MEDS ORDERED: MENTHOL/PHENOL 1 EACH UD MM PRN (00:20)
[2020-11-20] MEDS ORDERED: MAG HYDROX/AL HYDROX/SIMETH 30 ML UNIT-DOSE CUP PO PRN (00:20)
[2020-11-20] MEDS ORDERED: ACETAMINOPHEN 325 MG TABLET (FP) PO PRN ×2 (00:20)
[2020-11-20] MEDS ORDERED: MAGNESIUM CITRATE 300 ML BOTTLE PO PRN (00:20)
[2020-11-20] MEDS: ONDANSETRON *ODT* 4 MG TABLET SL PRN (01:03)
[2020-11-20] MEDS: IBUPROFEN 400 MG TABLET (FP) PO PRN (01:55)
[2020-11-20] MEDS: NICOTINE POLACRILEX 2 MG GUM BUC PRN (01:55)
[2020-11-20] MEDS: BISMUTH SUBSALICYLATE 524 MG/30 ML UD PO PRN ×2 (01:55→17:40)
[2020-11-20] MEDS: hydrOXYzine PAMOATE 25 MG CAPSULE (FP) PO SCH ×5 (05:21→23:09)
[2020-11-20] MEDS ORDERED: METHADONE HCL 10 MG TABLET (FOR DETOX USE ONLY) PO ONE (12:49)
[2020-11-20] MEDS: METHOCARBAMOL 500 MG TABLET PO PRN (13:19)
[2020-11-20] MEDS: PRENATAL VITAMINS W/ FOLIC ACID TABLET (FP) PO SCH (13:19)
[2020-11-20] MEDS: NICOTINE 14 MG/24 HOURS TOPICAL PATCH TD SCH (13:21)
[2020-11-20] MEDS: THIAMINE HCL 100 MG TABLET (FP) PO SCH (23:09)
[2020-11-20] MEDS: MELATONIN 5 MG TABLETS PO SCH (23:09)
[2020-11-21] MEDS: hydrOXYzine PAMOATE 25 MG CAPSULE (FP) PO SCH ×5 (07:11→22:32)
[2020-11-21] MEDS ORDERED: METHADONE (DETOX) 20 MG, METHADONE (DETOX) 5 MG PO ONE (10:00)
[2020-11-21] MEDS: PRENATAL VITAMINS W/ FOLIC ACID TABLET (FP) PO SCH (10:59)
[2020-11-21] MEDS ORDERED: METHADONE HCL 10 MG TABLET (FOR DETOX USE ONLY) ONE (11:01)
[2020-11-21] MEDS ORDERED: METHADONE HCL 5 MG TABLET (FOR DETOX USE ONLY) ONE (11:01)
[2020-11-21] MEDS: NICOTINE 14 MG/24 HOURS TOPICAL PATCH TD SCH (11:02)
[2020-11-21 12:18] LABS: HEMATOCRIT 37.6 % (32.4-45.2); HEMOGLOBIN 12.6 GM/dL (10.7-15.3); MCH 30.8 pg (25.7-33.7); MCHC 33.5 g/dl (32.0-36.0); MEAN CELL VOLUME 91.9 fl (80-96); MEAN PLT VOLUME 9.5 fl (7.5-11.1); PLATELET COUNT 228 K/MM3 (134-434); RBC 4.09 M/mm3 (3.60-5.2); RDW 13.3 % (11.6-15.6); WHITE BLOOD COUNT 5.5 K/mm3 (4.0-10.0)
[2020-11-21 12:21] LABS: BLOOD UREA NITROGEN 11.3 mg/dL (7-18)
[2020-11-21 12:24] LABS: ALBUMIN 2.8 g/dl (3.4-5.0)
[2020-11-21 12:25] LABS: BILIRUBIN,TOTAL 0.3 mg/dL (0.2-1); TOT PROT 5.4 g/dl (6.4-8.2)
[2020-11-21 12:43] LABS: CREATININE 0.6 mg/dL (0.55-1.3)
[2020-11-21] MEDS: ONDANSETRON *ODT* 4 MG TABLET SL PRN (13:06)
[2020-11-21] MEDS: cloNIDine HCL 0.1 MG TABLET PO PRN (13:06)
[2020-11-21] MEDS: IBUPROFEN 400 MG TABLET (FP) PO PRN ×2 (14:48→20:36)
[2020-11-21] MEDS: METHOCARBAMOL 500 MG TABLET PO PRN (17:14)
[2020-11-21] MEDS: BISMUTH SUBSALICYLATE 524 MG/30 ML UD PO PRN ×2 (17:15→22:33)
[2020-11-21] MEDS: THIAMINE HCL 100 MG TABLET (FP) PO SCH (22:32)
[2020-11-21] MEDS: MELATONIN 5 MG TABLETS PO SCH (22:32)
[2020-11-22] MEDS: hydrOXYzine PAMOATE 25 MG CAPSULE (FP) PO SCH ×5 (07:01→22:05)
[2020-11-22] MEDS ORDERED: METHADONE HCL 10 MG TABLET (FOR DETOX USE ONLY) PO ONE (10:00)
[2020-11-22] MEDS: NICOTINE 14 MG/24 HOURS TOPICAL PATCH TD SCH (11:07)
[2020-11-22] MEDS: PRENATAL VITAMINS W/ FOLIC ACID TABLET (FP) PO SCH (11:07)
[2020-11-22] MEDS: METHOCARBAMOL 500 MG TABLET PO PRN (11:08)
[2020-11-22] MEDS: BISMUTH SUBSALICYLATE 524 MG/30 ML UD PO PRN (11:08)
[2020-11-22] MEDS: IBUPROFEN 400 MG TABLET (FP) PO PRN (12:48)
[2020-11-22] MEDS: NICOTINE POLACRILEX 2 MG GUM BUC PRN ×2 (12:50→18:33)
[2020-11-22] MEDS: cloNIDine HCL 0.1 MG TABLET PO PRN (14:15)
[2020-11-22] MEDS: THIAMINE HCL 100 MG TABLET (FP) PO SCH (22:05)
[2020-11-22] MEDS: MELATONIN 5 MG TABLETS PO SCH (22:05)
[2020-11-23] MEDS: METHOCARBAMOL 500 MG TABLET PO PRN ×2 (00:31→15:30)
[2020-11-23 06:10] LABS: SARS-CoV-2 NAA Not Detected (Not Detected)
[2020-11-23] MEDS: hydrOXYzine PAMOATE 25 MG CAPSULE (FP) PO SCH ×5 (06:33→21:58)
[2020-11-23] MEDS ORDERED: METHADONE HCL 5 MG TABLET (FOR DETOX USE ONLY) ONE (08:54)
[2020-11-23] MEDS ORDERED: METHADONE HCL 10 MG TABLET (FOR DETOX USE ONLY) ONE (08:54)
[2020-11-23] MEDS ORDERED: METHADONE (DETOX) 10 MG, METHADONE (DETOX) 5 MG PO ONE (10:00)
[2020-11-23] MEDS: NICOTINE 14 MG/24 HOURS TOPICAL PATCH TD SCH (11:54)
[2020-11-23] MEDS: PRENATAL VITAMINS W/ FOLIC ACID TABLET (FP) PO SCH (11:54)
[2020-11-23] MEDS: BISMUTH SUBSALICYLATE 524 MG/30 ML UD PO PRN (12:21)
[2020-11-23] MEDS ORDERED: MELATONIN 5 MG TABLETS PO SCH (15:35)
[2020-11-23] MEDS: IBUPROFEN 400 MG TABLET (FP) PO PRN (17:42)
[2020-11-23] MEDS: NICOTINE POLACRILEX 2 MG GUM BUC PRN (19:46)
[2020-11-23] MEDS: QUEtiapine FUMARATE 50 MG TABLET PO SCH (21:58)
[2020-11-23] MEDS: THIAMINE HCL 100 MG TABLET (FP) PO SCH (21:58)
[2020-11-24] MEDS: hydrOXYzine PAMOATE 25 MG CAPSULE (FP) PO SCH ×2 (05:53→10:00)
[2020-11-24 09:03] VITALS: BP 100/60; PULSE 72; TEMP 96.4
[2020-11-24] MEDS: NICOTINE 14 MG/24 HOURS TOPICAL PATCH TD SCH (09:59)
[2020-11-24] MEDS: PRENATAL VITAMINS W/ FOLIC ACID TABLET (FP) PO SCH (09:59)
[2020-11-24] MEDS: QUEtiapine FUMARATE 50 MG TABLET PO SCH (09:59)
[2020-11-24] MEDS ORDERED: METHADONE HCL 10 MG TABLET (FOR DETOX USE ONLY) PO ONE (10:00)
[2020-11-24] MEDS: BISMUTH SUBSALICYLATE 524 MG/30 ML UD PO PRN (10:01)
[2020-11-25] MEDS ORDERED: METHADONE HCL 5 MG TABLET (FOR DETOX USE ONLY) PO ONE (06:00)
== END 2020-11-24 12:22 | disposition home or self-care (01) | DRG 897 ==
LOC: YASAS 20:51 → Y6N 11-20 07:36 → UNDOADMIN 11-20 07:36 → Y3N 11-20 14:17
PROVIDERS: ADMIT Allergy & Immunology; ATTEND Allergy & Immunology
PROC: HZ2ZZZZ Detoxification Services for Substance Abuse Treatment (ICD-10-PCS; principal; 2020-11-20)
DX: F11.23 Opioid dependence with withdrawal (principal); F14.20 Cocaine dependence, uncomplicated; F19.259 Other psychoactive substance dependence with psychoactive substance-induced psychotic disorder, unspecified; F17.210 Nicotine dependence, cigarettes, uncomplicated; F22 Delusional disorders; F31.9 Bipolar disorder, unspecified; F60.9 Personality disorder, unspecified; G47.00 Insomnia, unspecified; Z86.11 Personal history of tuberculosis; Z88.6 Allergy status to analgesic agent
CPT/HCPCS: 36415; 80053; 81025; 84702; 85027; 86780; C9803; J0735; Q0162; U0003; U0005

== ENCOUNTER 2020-12-28 23:17 | Inpatient (IN) | payer OTHER ==
[2020-12-29] MEDS ORDERED: MAGNESIUM CITRATE 300 ML BOTTLE PO PRN (00:18)
[2020-12-29] MEDS ORDERED: MENTHOL/PHENOL 1 EACH UD MM PRN (00:18)
[2020-12-29] MEDS ORDERED: guaiFENesin 200 MG/10 ML 10 ML UNIT-DOSE CUPS PO PRN (00:18)
[2020-12-29] MEDS ORDERED: DICYCLOMINE HCL 10 MG CAPSULE PO PRN (00:18)
[2020-12-29] MEDS ORDERED: BISMUTH SUBSALICYLATE 524 MG/30 ML PO PRN (00:18)
[2020-12-29] MEDS ORDERED: MAGNESIUM HYDROX 2400MG/30ML ORAL SUSPENSION 30 ML CUP PO PRN (00:18)
[2020-12-29] MEDS ORDERED: cloNIDine HCL 0.1 MG TABLET PO PRN (00:18)
[2020-12-29] MEDS ORDERED: METHOCARBAMOL 500 MG TABLET PO PRN (00:18)
[2020-12-29] MEDS ORDERED: NALOXONE (NARCAN) HCL 4 MG/0.1 ML SPRAY NS PRN (00:18)
[2020-12-29] MEDS ORDERED: MAG HYDROX/AL HYDROX/SIMETH 30 ML UNIT-DOSE CUP PO PRN (00:18)
[2020-12-29] MEDS ORDERED: METHADONE HCL 10 MG TABLET (FOR DETOX USE ONLY) PO ONE (00:18)
[2020-12-29] MEDS ORDERED: P-EPHED 60MG/TRIPROLIDI 2.5MG TABLET PO PRN (00:18)
[2020-12-29] MEDS ORDERED: ONDANSETRON *ODT* 4 MG TABLET SL PRN (00:18)
[2020-12-29] MEDS ORDERED: NALOXONE HCL 0.4 MG/ML VIAL IM PRN (00:18)
[2020-12-29 10:41] LABS: HEMATOCRIT 40.6 % (32.4-45.2); HEMOGLOBIN 13.3 GM/dL (10.7-15.3); MCH 29.6 pg (25.7-33.7); MCHC 32.8 g/dl (32.0-36.0); MEAN CELL VOLUME 90.1 fl (80-96); MEAN PLT VOLUME 9.2 fl (7.5-11.1); PLATELET COUNT 288 10^3/uL (134-434); RBC 4.51 M/mm3 (3.60-5.2); RDW 13.6 % (11.6-15.6); WHITE BLOOD COUNT 10.1 K/mm3 (4.0-10.0)
[2020-12-29 11:15] LABS: BLOOD UREA NITROGEN 10.1 mg/dL (7-18)
[2020-12-29 11:27] LABS: CALCIUM 8.6 mg/dL (8.5-10.1)
[2020-12-29 11:29] LABS: ALBUMIN 3.3 g/dl (3.4-5.0)
[2020-12-29 11:32] LABS: CREATININE 0.6 mg/dL (0.55-1.3)
[2020-12-29 11:34] LABS: BILIRUBIN,TOTAL 0.3 mg/dL (0.2-1); TOT PROT 6.2 g/dl (6.4-8.2)
[2020-12-29] MEDS ORDERED: PNEUMOC 13-VAL CONJ-DIP CRM/PF 0.5 ML DISP.SYRIN IM ONE (11:40)
[2020-12-29] MEDS ORDERED: PNEUMOCOCCAL 23 VACCINE 0.5 ML VIAL IM ONE (12:00)
[2020-12-29] MEDS: NICOTINE 14 MG/24 HOURS TOPICAL PATCH TD SCH (13:06)
[2020-12-29] MEDS: PRENATAL VITAMINS W/ FOLIC ACID TABLET (FP) PO SCH (13:06)
[2020-12-29] MEDS: diazePAM 5 MG TABLET PO PRN ×2 (17:17→22:34)
[2020-12-29] MEDS ORDERED: MELATONIN 5 MG TABLETS PO SCH (22:00)
[2020-12-29] MEDS ORDERED: THIAMINE HCL 100 MG TABLET (FP) PO SCH (22:00)
[2020-12-29] MEDS: NICOTINE POLACRILEX 2 MG GUM BUC PRN (22:35)
[2020-12-30] MEDS: diazePAM 5 MG TABLET PO PRN (05:34)
[2020-12-30] MEDS ORDERED: METHADONE HCL 5 MG TABLET (FOR DETOX USE ONLY) ONE (08:59)
[2020-12-30] MEDS ORDERED: METHADONE HCL 10 MG TABLET (FOR DETOX USE ONLY) ONE (09:00)
[2020-12-30] MEDS ORDERED: METHADONE (DETOX) 20 MG, METHADONE (DETOX) 5 MG PO ONE (10:00)
[2020-12-30] MEDS: NICOTINE 14 MG/24 HOURS TOPICAL PATCH TD SCH (10:42)
[2020-12-30] MEDS: PRENATAL VITAMINS W/ FOLIC ACID TABLET (FP) PO SCH (10:43)
[2020-12-30] MEDS: IBUPROFEN 400 MG TABLET (FP) PO PRN ×2 (10:46→17:57)
[2020-12-30] MEDS ORDERED: diazePAM 5 MG TABLET PO PRN (12:00)
[2020-12-30] MEDS ORDERED: PNEUMOC 13-VAL CONJ-DIP CRM/PF 0.5 ML DISP.SYRIN IM ONE (13:53)
[2020-12-30] MEDS: NICOTINE POLACRILEX 2 MG GUM BUC PRN ×2 (14:56→17:56)
[2020-12-30] MEDS ORDERED: hydrOXYzine PAMOATE 25 MG CAPSULE (FP) PO ONE (17:14)
[2020-12-30 17:55] VITALS: BP 118/96; PULSE 106; TEMP 98.1
[2020-12-30] MEDS ORDERED: QUEtiapine FUMARATE 50 MG TABLET PO SCH (22:00)
[2020-12-31] MEDS ORDERED: METHADONE HCL 10 MG TABLET (FOR DETOX USE ONLY) PO ONE (10:00)
[2020-12-31] MEDS ORDERED: PNEUMOCOCCAL 23 VACCINE 0.5 ML VIAL IM ONE (12:00)
[2021-01-01] MEDS ORDERED: METHADONE (DETOX) 10 MG, METHADONE (DETOX) 5 MG PO ONE (10:00)
[2021-01-02] MEDS ORDERED: METHADONE HCL 10 MG TABLET (FOR DETOX USE ONLY) PO ONE (10:00)
[2021-01-03] MEDS ORDERED: METHADONE HCL 5 MG TABLET (FOR DETOX USE ONLY) PO ONE (06:00)
== END 2020-12-30 20:00 | disposition left against medical advice (07) | DRG 894 ==
LOC: YASAS 23:17 → Y6N 12-29 00:51
PROVIDERS: ADMIT Allergy & Immunology; ATTEND Allergy & Immunology
PROC: HZ2ZZZZ Detoxification Services for Substance Abuse Treatment (ICD-10-PCS; principal; 2020-12-29)
DX: F11.23 Opioid dependence with withdrawal (principal); F19.282 Other psychoactive substance dependence with psychoactive substance-induced sleep disorder; F19.259 Other psychoactive substance dependence with psychoactive substance-induced psychotic disorder, unspecified; F10.20 Alcohol dependence, uncomplicated; F17.210 Nicotine dependence, cigarettes, uncomplicated; F42.4 Excoriation (skin-picking) disorder; Z86.11 Personal history of tuberculosis
CPT/HCPCS: 36415; 80053; 81025; 85027; 86780; C9803; U0003; U0005